=== PATIENT | female | born 1945 | race Caucasian/White ===

== ENCOUNTER → 2017-01-29 | Outpatient (CLI) | payer MEDICARE, OTHER ==
[~2017-01-29] MED LIST: HYDROCHLOROTHIAZIDE PO; IBUP-1324 PO; OMEG100016 PO; SIMV20TA89 PO; TRIAMTERENE PO
== END ==
LOC: WC.BC 11:06
DX: Z12.31 Encounter for screening mammogram for malignant neoplasm of breast (principal); N64.59 Other signs and symptoms in breast
CPT/HCPCS: 77063; G0202